=== PATIENT | female | born 1960 | race African-American/Black ===

== ENCOUNTER → 2017-02-21 | Outpatient (CLI) | payer BC ==
--- NOTE | ~2017-02-21 | MY11 ---
[facility] A Service of [facility] & [facility] / [facility] RADIOLOGY TEXT RESULTS PATIENT: JIMY SALGUERO LOCATION: [facility] : 56 UNIT #: [id number] AGE: [address]: IRA TRAVIS APRN SEX: F ORDER DR: [id number] [facility] [address] [place] [place], [place] [address] [id number] O MR#: [id number] #: [id number] NAME: JIMY SALGUERO : 1960 SEX: F STUDY DATE/TIME: 02/21/2017 10:51 UNIT: [facility] ROOM: STUDY DESCRIPTION: MY Mammogram Screening Dig Robby Attending Physician: Ira Travis Aprn Ordering Physician: Ira Travis Aprn Primary Care Physician: Ira Travis Aprn MEDICAL IMAGING REPORT This report is preliminary unless electronic signature is present EXAM Bilateral digital screening mammogram with CAD. DATE 02/21/2017 HISTORY 56-year-old female family history of breast cancer in her grandmother at the age of 67. No personal history of breast cancer or current complaints. COMPARISON Bilateral screening mammogram, 08/02/2015. FINDINGS CC and MLO views were obtained of each breast utilizing digital technique and reviewed with an FDA-approved CAD device. The breast parenchyma is predominantly fatty replaced. No new or suspicious nodules are seen. Benign round calcifications are present bilaterally. No suspicious cluster of microcalcification or architectural distortion. Intramammary lymph node in the posterior superior right breast MLO view is unchanged from prior exams. IMPRESSION BIRADS 2. Benign findings. Routine bilateral screening mammogram is recommended in 1 year. Patients over the age of 40 are entered into a reminder system with target due date for the next mammogram. A result letter will also be sent to the patient. BIRADS: 2 Benign finding. [facility] A Service of [facility] & [facility] / [facility] RADIOLOGY TEXT RESULTS PATIENT: JIMY SALGUERO LOCATION: [facility] : 56 UNIT #: [id number] AGE: [address]: IRA TRAVIS APRN SEX: F ORDER DR: Dictated by... Justyna Tolliver M.D. THIS IS AN ELECTRONICALLY VERIFIED REPORT Justyna Tolliver M.D. at 02/22/2017 7:24 AM JOSÉ ANTONIO/audrey TD: 02/21/2017 12:27 JOB #: [id number] MEDICAL IMAGING REPORT Page 1 of 1 COPY
== END | disposition home or self-care (01) ==
LOC: CWCC 10:18
DX: Z12.31 Encounter for screening mammogram for malignant neoplasm of breast (principal); Z80.3 Family history of malignant neoplasm of breast
CPT/HCPCS: G0202

== ENCOUNTER 2017-04-28 13:15 | Emergency (ER) | payer BC ==
--- NOTE | ~2017-04-28 | CR172 ---
[facility] A Service of [facility] & [facility] RADIOLOGY TEXT RESULTS PATIENT: JIMY SALGUERO LOCATION: [facility] : 56 UNIT #: [id number] AGE: [address]: Vy Montez SEX: F ORDER DR: [id number] [facility] [address] [place], [place] [address] [id number] E MR#: [id number] Acc #: [id number] NAME: JIMY SALGUERO : 1960 SEX: F STUDY DATE/TIME: 04/28/2017 14:10 UNIT: [facility] ROOM: STUDY DESCRIPTION: CR Knee 3 Views Lt Attending Physician: Vy Montez Pa-C Ordering Physician: Ed Vincent Valle M.D. Primary Care Physician: Ira Worrell Aprn MEDICAL IMAGING REPORT This report is preliminary unless electronic signature is present EXAM Left knee, 3 views, 04/28/2017. HISTORY Left knee pain posteriorly and frontal for 3 days. No known injury. FINDINGS Three views of the left knee demonstrate no fracture. There is degenerative change with mild narrowing of the medial and lateral compartments of the patellofemoral joint. Osteophytes extend off the medial femoral condyle, medial aspect of the tibial plateau and the posterior patella. There is no joint effusion. IMPRESSION Degenerative change about the left knee. No acute abnormality. Dictated by... Warren Pineda M.D. THIS IS AN ELECTRONICALLY VERIFIED REPORT Warren Pineda M.D. at 04/29/2017 2:13 PM Florian TD: 04/28/2017 23:33 JOB #: [id number] MEDICAL IMAGING REPORT Page 1 of 1 COPY
== END 2017-04-28 15:15 | disposition home or self-care (01) ==
LOC: CFTX 13:15 → CED 13:15 → CFTX 14:14
DX: M25.562 Pain in left knee (principal); F17.200 Nicotine dependence, unspecified, uncomplicated; Z88.2 Allergy status to sulfonamides
CPT/HCPCS: 29530; 73562; 99283